=== PATIENT | female | born 1930 | race Caucasian/White ===

== ENCOUNTER 2016-06-12 11:14 | Emergency (ER) | payer MEDICARE, OTHER ==
[2016-06-12] MEDS ORDERED: HYDROmorphone 1 MG/ML SYRINGE IVP STA ×2 (12:28→12:56)
[2016-06-12] MEDS ORDERED: SODIUM CHLORIDE 0.9% 1,000 ML IV ONE (12:28)
[2016-06-12] MEDS ORDERED: ONDANSETRON 4 MG/2 ML VIAL IVP STA (12:28)
[2016-06-12] MEDS ORDERED: ONDANSETRON 4 MG/2 ML VIAL ONE (12:32)
[2016-06-12] MEDS ORDERED: HYDROmorphone 1 MG/ML SYRINGE ONE ×2 (12:32→13:04)
[2016-06-12] MEDS ORDERED: IOPAMIDOL-300 100 ML VIAL IVP ONE (13:57)
[2016-06-12] MEDS ORDERED: oxyCOD/ACETAMIN 5 MG/325 MG TABLET PO STA (15:48)
[2016-06-12] MEDS ORDERED: oxyCOD/ACETAMIN 5 MG/325 MG TABLET PO ONE (16:00)
== END 2016-06-12 16:10 | disposition home or self-care (01) ==
DX: R22.0 Localized swelling, mass and lump, head (principal); I10 Essential (primary) hypertension; Z79.82 Long term (current) use of aspirin; F17.200 Nicotine dependence, unspecified, uncomplicated; C50.919 Malignant neoplasm of unspecified site of unspecified female breast
CPT/HCPCS: 36415; 70487; 80053; 83690; 85025; 96361; 96374; 96375; 96376; 99284; 99285; A9270; J1170; Q9967

== ENCOUNTER 2016-09-20 15:12 | Emergency (ER) | payer MEDICARE, OTHER ==
--- NOTE | 2016-09-20 15:53 | ED Physician Documentation ---
PD HPI ABD PAIN - Stated complaint Stated Complaint: NEAR SYNCOPE - Chief complaint Chief Complaint: General - History obtained from History obtained from: Patient - History of Present Illness Timing - onset: How many days ago (few) Timing - duration: Days (few) Timing - details: Gradual onset, Still present Quality: Aching, Fullness/distended (feeling full/ impacted at rectal area and has pain when tries to push it out. Gets feeling lightheaded with straining and daughter says she passed out briefly couple of times when straining. No lightheadedness at other times.) Location: Other (rectal area) Radiation: No: Lower back Improved by: No: BM (trying to have BM but cannot get out stool, even with enema this morning.) Associated symptoms: Constipation, Near syncope / syncope. No: Fever, Nausea, Vomiting, Diarrhea, Melena, Hematochezia, Loss of appetite, Weight loss Review of Systems Ten Systems: 10 systems reviewed and negative Constitutional: denies: Fever, Chills Nose: denies: Rhinorrhea / runny nose, Congestion Throat: denies: Sore throat Cardiac: denies: Chest pain / pressure, Palpitations, Pedal edema, Calf pain Respiratory: denies: Dyspnea, Cough, Wheezing Musculoskeletal: denies: Neck pain, Back pain, Extremity swelling Neurologic: reports: Generalized weakness, Near syncope. 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 Cardiovascular: Coronary stent - Present Medications Home Medications: Ambulatory Orders Medication Instructions Recorded Confirmed Amitriptyline [Elavil] 25 mg PO HS 06/15/14 11/18/14 Brimonidine 0.1% Ophth Drops 1 drop EACHEYE TID 06/15/14 11/18/14 [Alphagan P 0.1% Ophth Drops] Cyanocobalamin [Vitamin B-12] 1,000 mcg IM Q30D 06/15/14 11/18/14 Felodipine [Plendil] 10 mg PO BID 06/15/14 11/18/14 Latanoprost 0.005% Ophth Drops 1 drop EACHEYE QPM 06/15/14 11/18/14 [Xalatan Ophth Drops] Metoprolol Tartrate 50 mg PO BID 06/15/14 11/18/14 Potassium Chloride [K-Dur] 20 meq PO DAILY 06/15/14 11/18/14 Albuterol Sulfate [Albuterol 2 puffs INH Q4H PRN 10/18/14 11/18/14 Sulfate Hfa] Aspirin EC [Ecotrin] 325 mg PO DAILY 10/18/14 11/18/14 Docusate Sodium 250Mg Capsule 250 mg PO DAILY PRN 10/18/14 11/18/14 [Colace] Dorzolamide HCl/Timolol Maleat 1 drop EACHEYE BID 10/18/14 11/18/14 [Dorzolamide-Timolol Eye Drops] Triamterene/Hydrochlorothiazid 1 tab PO DAILY 10/18/14 11/18/14 [Triamterene-Hctz 75-50 mg Tab] HYDROmorphone [Dilaudid] 2 mg PO Q6H PRN 11/18/14 11/18/14 LORazepam [Ativan] 0.5 mg PO Q8H PRN #10 tablet 11/18/14 Oxycodone HCl/Acetaminophen 1 - 2 tab PO Q4H PRN #15 tablet 06/12/16 [Percocet 5-325 mg Tablet] Polyethylene Glycol 3350 [Miralax] 17 gm PO DAILY #238 g 09/20/16 Potassium Chloride 10 meq PO DAILY #15 tab.er.prt 09/20/16 - Allergies Allergies/Adverse Reactions: Allergies Allergy/AdvReac Type Severity Reaction Status Date / Time morphine AdvReac Nausea Verified 06/15/14 16:16 - Social History Does the pt smoke?: Yes Smoking Status: Current every day smoker Does the pt drink ETOH?: No Does the pt have substance abuse?: No - Immunizations Immunizations are current?: Yes - POLST Patient has POLST: No PD ED PE NORMAL - Vitals Vital signs reviewed: Yes - General General: Alert and oriented X 3, No acute distress, Well developed/nourished - HEENT HEENT: Ears normal, Moist mucous membranes, Pharynx benign - Neck Neck: Supple, no meningeal sign, No adenopathy - Cardiac Cardiac: RRR, No murmur - Respiratory Respiratory: No respiratory distress, Clear bilaterally - Abdomen Abdomen: Normal bowel sounds, Soft, Non tender, Non distended, No organomegaly - Female Female : Deferred - Rectal Rectal: Other (tender small nonthrombsed external hemorrhoids noted. Stool impaction, caterina=like and tennis ball sized, broken up digitally to small pieces. Guiac negative ) - Back Back: No CVA TTP - Derm Derm: Normal color, Warm and dry Results - Vitals Vitals: Oxygen O2 Source [] Nasal cannula O2 Source [] Nasal cannula O2 Source Room air - EKG (time done) 16:54 Rate: Rate (enter#) (57) Rhythm: Sinus bradycardia Intervals: Prolonged QT QRS: Normal Ischemia: Normal ST segments. No: ST elevation c/w ischemia, ST depression, T wave inversion - Labs Labs: Laboratory Tests 09/20/16 09/20/16 09/20/16 17:31 17:31 17:31 WBC 6.4 RBC 3.85 L Hgb 13.7 Hct 39.3 MCV 102.2 H MCH 35.6 H MCHC 34.9 RDW 12.4 Plt Count 173 MPV 7.0 L Neut # 4.3 Lymph # 1.5 [place] # 0.5 Eos # 0.1 Baso # 0.0 Absolute Nucleated RBC 0.00 Nucleated RBCs 0.0 Sodium 131 L Potassium 2.8 L Chloride 90 L Carbon Dioxide 30 Anion Gap 11.0 BUN 17 Creatinine 1.0 Estimated GFR (MDRD) 53 L Glucose 101 H Calcium 8.9 Magnesium 2.3 Total Bilirubin 0.8 AST 19 ALT 12 Alkaline Phosphatase 34 L Troponin I < 0.04 Total Protein 6.7 Albumin 4.1 Globulin 2.6 Albumin/Globulin Ratio 1.6 Lipase 15 L PD MEDICAL DECISION MAKING - ED course Complexity details: reviewed results, considered differential (she had near syncope/syncope just with straining hard for BM. No other episodes, and feels okay otherwise. Presume vasovagal. Low K could be enhancing it. ECG and monitor are normal in rate and rhythym. She had stool impaction which was broken up digitally and then flushed with good results with 2 enemas.She feels much improved. ), d/w patient, d/w family, d/w PMD, d/w wound care center consultant Departure - Departure Disposition: 01 Home, Self Care Clinical Impression: Hypokalemia Constipated Qualifiers: Constipation type: unspecified constipation type Qualified Code(s): K59.00 - Constipation, unspecified Syncope Qualifiers: Syncope type: vasovagal syncope Qualified Code(s): R55 - Syncope and collapse Condition: Stable Record reviewed to determine appropriate education?: Yes Instructions: ED Syncope Vasovagal, ED Potassium Deficiency, ED Constipation Follow-Up: Lavelle Stoll MD [Primary Care Provider] - Prescriptions: Polyethylene Glycol 3350 [Miralax] 17 gm PO DAILY #238 g Potassium Chloride 10 meq PO DAILY #15 tab.er.prt Comments: Frequent fluids. Daily fiber supplement may help. Continue the Docusate daily. Use Miralax once or twice daily for stool softness. Potassium supplement daily for 2 weeks. Recheck with PMD later this week. Discharge Date/Time: 09/20/16 20:30
[2016-09-20] MEDS: MINERAL OIL ENEMA 133 ML BOTTLE RC STA ×2 (16:36→19:40)
[2016-09-20 17:37] LABS: BASOPHILS % (AUTO) 0.6 %; EOSINOPHILS # (AUTO) 0.1 10^3/uL (0.0-0.7); EOSINOPHILS % (AUTO) 1.2 %; HCT - HEMATOCRIT 39.3 % (37.0-47.0); HGB - HEMOGLOBIN 13.7 g/dL (12.0-16.0); LYMPHOCYTES # (AUTO) 1.5 10^3/uL (1.5-3.5); LYMPHOCYTES % (AUTO) 24.1 %; MEAN CORPUSCULAR HEMOGLOBIN 35.6 pg (27.0-31.0); MEAN CORPUSCULAR HGB CONC 34.9 g/dL (32.0-36.0); MEAN CORPUSCULAR VOLUME 102.2 fL (81.0-99.0); MONOCYTES # (AUTO) 0.5 10^3/uL (0.0-1.0); MONOCYTES % (AUTO) 7.4 %; NEUTROPHILS # (AUTO) 4.3 10^3/uL (1.5-6.6); NEUTROPHILS % (AUTO) 66.7 %; RED BLOOD COUNT 3.85 10^6/uL (4.20-5.40); RED CELL DISTRIBUTION WIDTH 12.4 % (12.0-15.0); UNCORRECTED WHITE BLOOD COUNT 6.4 x10^3/uL; WHITE BLOOD COUNT 6.4 x10^3/uL (4.8-10.8)
[2016-09-20 17:48] LABS: ALBUMIN/GLOBULIN RATIO 1.6 (1.0-2.2); BILIRUBIN,TOTAL 0.8 mg/dL (0.2-1.0); CALCIUM 8.9 mg/dL (8.5-10.3); MAGNESIUM 2.3 mg/dL (1.7-2.8); POTASSIUM 2.8 mmol/L (3.5-5.0); TOTAL PROTEIN 6.7 g/dL (6.7-8.2)
[2016-09-20] MEDS ORDERED: MAGNESIUM CITRATE 296 ML BOTTLE ONE (18:52)
[2016-09-20] MEDS ORDERED: POTASSIUM BICARB 25 MEQ TABLET PO ONE (18:53)
[2016-09-20] MEDS: POTASSIUM BICARB 25 MEQ TABLET PO STA (18:57)
[2016-09-20] MEDS: MAGNESIUM CITRATE 296 ML BOTTLE PO STA (18:58)
[2016-09-20 21:08] VITALS: BP 155/79
== END 2016-09-20 20:30 | disposition home or self-care (01) ==
LOC: ED 15:12
DX: K59.00 Constipation, unspecified (principal); R55 Syncope and collapse; E87.6 Hypokalemia; I10 Essential (primary) hypertension; J44.9 Chronic obstructive pulmonary disease, unspecified; Z86.73 Personal history of transient ischemic attack (TIA), and cerebral infarction without residual deficits; Z87.19 Personal history of other diseases of the digestive system; M19.90 Unspecified osteoarthritis, unspecified site; Z79.82 Long term (current) use of aspirin; F17.200 Nicotine dependence, unspecified, uncomplicated
CPT/HCPCS: 36415; 80053; 83690; 83735; 84484; 85025; 93005; 93010; 99284